=== PATIENT | female | born 1990 | race Two or more races ===

== ENCOUNTER 2022-06-02 15:47 | Emergency (ER) | payer SELFPAY ==
[~2022-06-02] VITALS: Ht 157.5 cm; Wt 59.0 kg
--- NOTE | 2022-06-02 16:45 | NUR ---
PT SEEN BY MD AT BEDSIDE
--- NOTE | 2022-06-02 17:35 | NUR ---
Patient discharged to home in stable condition. Written and verbal after care instructions given. Patient verbalizes understanding of instruction.
--- NOTE | 2022-06-02 17:36 | NUR ---
HOMELESS WAIVER AND RESOURCES REFUSED BY PT AT THIS TIME.
[2022-06-02 17:37] VITALS: BP 139/92
== END 2022-06-02 17:37 | disposition home or self-care (01) ==
LOC: ER 15:57
DX: F11.10 Opioid abuse, uncomplicated (principal); Z88.8 Allergy status to other drugs, medicaments and biological substances; Z59.00 Homelessness unspecified